=== PATIENT | female | born 1955 | race Caucasian/White ===

== ENCOUNTER 2019-03-13 16:41 | Inpatient (IN) | payer OTHER ==
[~2019-03-13] VITALS: Ht 162.6 cm; Wt 114.8 kg
[2019-03-13] VITALS (18 sets, daily range): BP systolic 115–159; BP diastolic 68–97
[2019-03-13 17:13] LABS: ABSOLUTE BASOPHILS 0.2 thou/uL (0.0-0.2); ABSOLUTE EOSINOPHILS 0.2 thou/uL (0.0-0.7); ABSOLUTE LYMPHOCYTES 7.7 thou/uL (0.8-5.3); ABSOLUTE MONOCYTES 1.2 thou/uL (0.0-1.2); ABSOLUTE NEUTROPHILS 7.7 thou/uL (1.6-8.1); BASOPHILS 1.2 %; HEMATOCRIT 40.4 % (37.0-47.0); HEMOGLOBIN 13.8 gm/dL (12.0-15.0); LYMPHOCYTES 45.3 %; MCH 30.7 pg (26.0-34.0); MCHC 34.2 g/dL (28.0-37.0); MCV 89.6 fL (80.0-100.0); MPV 8.7 fl. (7.2-11.1); NUCLEATED RBCS 0 /100WBC; PLATELET COUNT* 366 thou/uL (150-400); POLYS 45.5 %; RDW-CV 13.6 % (10.5-14.5); WBC 16.9 thou/uL (4.0-11.0)
[2019-03-13 17:24] LABS: APTT 19.5 Seconds (25.0-31.3); PROTIME 10.6 Seconds (9.20-11.50)
[2019-03-13 17:25] LABS: POTASSIUM 3.2 mmol/L (3.5-5.1)
--- NOTE | 2019-03-13 17:35 | NUR ---
AROUND 1705 PT WENT INTO VFIB. CHEST COMPRESSIONS STARTED AND SHOCKED AT 300 J. PT RETURNED TO NSR AND REGAINED CONSCIOUSNESS. AMIODARONE GIVEN PRESCRIBED.
[2019-03-13 17:42] LABS: ALBUMIN 3.6 g/dL (3.4-5.0); CK-MB MASS 0.6 ng/mL (<0.5-3.6); MAGNESIUM 2.1 mg/dL (1.8-2.4); TOTAL BILIRUBIN 0.6 mg/dL (<0.1-1.0); TOTAL PROTEIN 7.1 g/dL (6.4-8.2)
--- NOTE | 2019-03-13 21:00 | NUR ---
CORRECTION: THIS RN COMPLETED ADMISSION INTERVENTIONS
[2019-03-14] VITALS (22 sets, daily range): BP systolic 89–177; BP diastolic 46–102
[2019-03-14 05:31] LABS: ABSOLUTE BASOPHILS 0.1 thou/uL (0.0-0.2); ABSOLUTE LYMPHOCYTES 1.9 thou/uL (0.8-5.3); ABSOLUTE MONOCYTES 0.7 thou/uL (0.0-1.2); ABSOLUTE NEUTROPHILS 7.8 thou/uL (1.6-8.1); BASOPHILS 0.7 %; EOSINOPHILS 0.1 %; HEMATOCRIT 37.9 % (37.0-47.0); LYMPHOCYTES 18.1 %; MCH 30.6 pg (26.0-34.0); MCHC 34.2 g/dL (28.0-37.0); MCV 89.3 fL (80.0-100.0); MONOCYTES 6.3 %; MPV 8.8 fl. (7.2-11.1); NUCLEATED RBCS 0 /100WBC; POLYS 74.8 %; RBC 4.25 mil/uL (4.20-5.00); RDW-CV 13.4 % (10.5-14.5); WBC 10.5 thou/uL (4.0-11.0)
[2019-03-14 06:01] LABS: CALCIUM 8.7 mg/dL (8.5-10.1); CREATININE 0.8 mg/dL (0.6-1.3)
--- NOTE | 2019-03-14 06:11 | NUR ---
PT. PROGRESSING TOWARDS GOALS. HAS REMAINED SINUS RHYTHM W/ PACS AND PVC'S THROUGHOUT SHIFT. BP ELEVATED AT ADMISSION TO ICU, LISINOPRIL/METOPROLOL GIVEN, BP WITHIN NORMAL LIMITS AT THIS TIME. HEART RATE 50'S-70'S. NO COMPLAINTS OF CHEST PAIN, PT. DID STATE SHE FELT "FUNNY" AND "WEAK", BUT DENIED PAIN. PT. IS ABLE TO REPOSITION SELF. MULTIPLE FAMILY MEMBERS THROUGHOUT SHIFT. WILL CONTINUE TO MONITOR.
[2019-03-14 06:12] LABS: PLATELET COUNT* 278 thou/uL (150-400)
--- NOTE | 2019-03-14 11:22 | EKG ---
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: : 1955 Requested By: Lev Roblero Order Number: [id number] MD: Moise Rosenberg Measurements Intervals [place] Rate: 58 P: 9 IN: 138 QRS: -18 QRSD: 92 T: -7 QT: 452 QTc: 445 Interpretive Statements Sinus bradycardia Borderline left axis deviation Anterior infarct, acute (LAD) Lateral leads are also involved Baseline wander in lead(s) II No previous ECG available for comparison Electronically Signed On 03-14-2019 11:22:23 DESULFURIZER HAND by Moise Rosenberg [email or web address] <ELECTRONICALLY SIGNED> By: Moise Rosenberg MD, FACC 03/14/19 1122 1654 1654 Moise Rosenberg MD, [facility] /EPI
--- NOTE | 2019-03-14 16:54 | NUR ---
this editorial writer assumed care of pt at 0700 after receiving shift report. pt advanced toward goals today up out of bed to chair denies feeling dizzy or soa. sendy removed pt up to commode as needed no c/o pain but generalized soreness pain meds x1 during shift. is pt on teley floor brought down by daughter via wheelchair to see eachother family in and out of room throughout shift
[2019-03-15] VITALS (14 sets, daily range): BP systolic 90–127; BP diastolic 41–75
[2019-03-15 03:41] LABS: CHOLESTEROL 167 mg/dL (<200); HDL CHOLESTEROL 46 mg/dL (>40); LDL CHOLESTEROL 97 mg/dL (<100); TC:HDL 3.6 Ratio (Not establshd); TRIGLYCERIDE 124 mg/dL (<150); VLDL 25 mg/dL (<40)
[2019-03-15 03:43] LABS: SERUM ASSESSMENT CLEAR; TROPONIN-I LEVEL 14.09 ng/mL (<0.06)
[2019-03-15] MEDS ORDERED: ASA81BEC PO (08:52)
[2019-03-15] MEDS ORDERED: LIPITOR 20 MG T20 M1 PO (08:52)
[2019-03-15] MEDS ORDERED: LISINOPRIL2.5 MG PO (08:53)
[2019-03-15] MEDS ORDERED: TOPROL XL25 MG PO (08:54)
[2019-03-15] MEDS ORDERED: EFFIENT10 MG PO (08:55)
--- NOTE | 2019-03-15 10:28 | CARD ---
[address] [address] CARDIAC CATH REPORT Name: SUREKHA MILLAN Room: [address] IN .R.#: [id number] Admission: 03/13/19 Attend Phys: Sunny Wetzel MD Discharge: Date of : 59 Report #: [id number] THIS REPORT FOR: //name// APPROVED REPORT Study performed: 03/13/2019 16:52:48 Patient Details Patient Status: In-Patient Room #: ICU [address] Rafael Wood Procedures Performed Left heart catheterization selective coronary artery artery and percutaneous coronary intervention with deployment of drug-eluting stent at the site of 100% mid LAD occlusion Indication STEMI Risk Factors Obesity, Hypercholesterolemia Admission/Lab Medications/Medications given during procedure Angiomax bolus and infusion Procedure Narrative The patient was brought emergently to the Cardiac Catheterization Laboratory and was prepped and draped in a sterile manner. The right femoral was infiltrated with 2% Lidocaine subcutaneous anesthesia. A 6 Croatian sheath was inserted into the right femoral artery. Coronary angiography was performed using coronary diagnostic catheters. The right coronary system was accessed and visualized with a Diagnostic catheter. The left coronary system was accessed and visualized with a Diagnostic catheter. Left ventricular/Aortic Valve gradient assessed via catheter pullback. Pre-demployment femoral angiogram was performed . Closure device was deployed with a 6 Fr Angioseal. Coronary Angiography The patient's coronary anatomy is right dominant. Diagnostic Cath Left Main 0% narrowing [facility] [address] [place] [address] CARDIAC CATH REPORT Name: SUREKHA MILLAN Room: [address] ADM IN ..#: [id number] Admission: 03/13/19 Attend Phys: Sunny Wetzel MD Discharge: Date of : 59 Report #: [id number] LAD 100% mid LAD occlusion with prominent intraluminal thrombus Circumflex 80% stenosis of the first marginal branch of the nondominant circumflex Right Coronary Dominant vessel with 0% narrowing Hemodynamics The aortic pressure is 130/70 mmHg with a mean of 82 mmHg. The left ventricular end diastolic pressure is 25 mmHg. There was no gradient across the aortic valve upon pullback. PCI Technique Lesion Anticoagulation was achieved with Angiomax. Percutaneous coronary intervention was performed on the mid LAD. The lesion stenosis prior to intervention was 100% with MIRANDA flow. A 6 Croatian XB LAD 3.5 Guide Catheter was used to engage the left ostium. A 014 [facility] flex Interventional Guidewire was used to cross the lesion. BALLOON DILATION A Balloon catheter 2.5 x 12 trek was inserted and inflated up to 16atm for 15seconds. STENT DEPLOYMENT A drug-eluting stent 2.5 x 34 mm Hi was inserted and inflated up to 14atm for 15seconds. POST STENT DEPLOYMENT BALLOON DILATION A Balloon catheter 2.75 x 12 NC trek was inserted and inflated up to 12-18atm for 15seconds. Final angiography reveals 0 % stenosis with MIRANDA 3 flow. Conclusion #[address] segment elevation myocardial infarction #2 coronary artery disease characterized by the following: A 100% mid LAD occlusion with prominent intraluminal thrombus B 80% stenosis of the proximal portion of the prominent first marginal branch of the nondominant circumflex C normal left main and dominant right coronary artery #2 moderately severe elevation of left ventricular [place] [address] CARDIAC CATH REPORT Name: RICHARD MILLAN Room: [address] IN [facility].#: [id number] Admission: 03/13/19 Attend Phys: Sunny Wetzel MD Discharge: Date of : 59 Report #: [id number] pressure at rest #3 successful percutaneous coronary intervention with deployment of drug-eluting stent at the site of 100% mid LAD occlusion with 0% residual narrowing MIRANDA-3 flow to the distal vessel and no residual thrombus Recommendations Cardiac Rehabilitation Referral Cardiac Risk Reduction Program Aggressive Medical Therapy Medications Administered Aspirin (any) Prasugrel Diagnostic Cath Approved by: Rafael Wood MD Date/Time: 03/15/2019 10:27:43 <ELECTRONICALLY SIGNED> By: Rafael Wood MD, [facility] 03/15/19 1028 1028 1028Jonai Wood MD, FACC /INF
--- NOTE | 2019-03-15 11:12 | NUR ---
PT.RESTING IN BED. FAMILY AT BEDSIDE. HER DAUGHTER AND DAUGHTER'S AND HER SISTER FROM [place]. PT.S S.O. IS A PT.UPSTAIRS ON TELEMETRY. PT.SAID SHE IS NORMALLY INDEPENDENT. NO USE OF DME. SHE IS IN THE MIDDLE OF BUILDING A NEW HOUSE. SHE HAS BEEN UNDER STRESS LATELY. SHE SEES DR.JAN XIAO HER PCP BUT HER AND S.O.MAY CHANGE PCPS TO BE CLOSER TO THEIR NEW HOME. GAVE HER A LIST OF HOSPITAL OWNED PHYSICIAN GROUPS. CM WILL FOLLOW.
--- NOTE | 2019-03-15 14:51 | 2DMMODE ---
[place] [address] 2 D/M-MODE ECHOCARDIOGRAM Name: SUREKHA MILLAN Room: [address] ADM IN .R.#: [id number] Admission: 03/13/19 Attend Phys: Sunny Wetzel, Discharge: Date of : 59 Date of Service: 03/15/19 1451 Report #: [id number] THIS REPORT FOR: //name// APPROVED REPORT Study performed: 03/15/2019 09:36:47 EXAM: Comprehensive 2D, Doppler, and color-flow Echocardiogram Patient Location: Bedside BSA: 1.96 HR: 74 bpm BP: 99/55 mmHg Other Information Study Quality: Fair Indications Myocardial Infarction 2D Dimensions IVSd: 10.41 (7-11mm) LVOT Diam: 15.75 (18-24mm) LVDd: 45.21 mm PWd: 10.74 (7-11mm) Ascending Ao: 30.70 (22-36mm) LVDs: 29.41 (25-40mm) Aortic Root: 23.51 mm Volumes Left Atrial Volume (Systole) LA ESV Index: 18.60 mL/m2 Aortic Valve AoV Peak Israel.: 1.58 m/s AO Peak Gr.: 10.05 mmHg LVOT Max P.72 mmHg AO Mean Gr.: 5.83 mmHg LVOT Mean P.82 mmHg LVOT Max V: 1.20 m/s AO V2 VTI: 33.52 cm LVOT Mean V: 0.77 m/s MAINE (VTI): 1.40 cm2 LVOT V1 VTI: 24.07 cm Mitral Valve E/A Ratio: 1.40 MV Decel. Time: 186.47 ms MV E Max Israel.: 0.79 m/s MV PHT: 54.08 ms MVA (PHT): 4.07 cm2 [place] [address] 2 D/M-MODE ECHOCARDIOGRAM Name: SUREKHA MILLAN Room: [address] IN .R.#: [id number] Admission: 03/13/19 Attend Phys: Sunny Wetzel, Discharge: Date of : 59 Date of Service: 03/15/19 1451 Report #: [id number] TDI E/Lateral E': 6.58 E/Medial E': 5.64 Medial E' Israel.: 0.14 m/s Lateral E' Israel.: 0.12 m/s Pulmonary Valve PV Peak Israel.: 0.88 m/s PV Peak Gr.: 3.08 mmHg Tricuspid Valve RAP Estimate: 15.00 mmHg TR Peak Gr.: 34.19 mmHg RVSP: 49.19 mmHg PA Pressure: 49.19 mmHg Left Ventricle The left ventricle is normal size. There is apical hypokinesis noted. There is normal left ventricular wall thickness. Left ventricular systolic function is normal. The left ventricular ejection fraction is within the normal range. LVEF is 55%. The left ventricular diastolic function is normal. Right Ventricle The right ventricle is normal size. The right ventricular systolic function is normal. Atria The left atrium size is normal. The right atrium size is normal. Aortic Valve The aortic valve is normal in structure. No aortic regurgitation is present. There is no aortic valvular stenosis. Mitral Valve The mitral valve is normal in structure. Trace mitral regurgitation. No evidence of mitral valve stenosis. Tricuspid Valve The tricuspid valve is normal in structure. Trace tricuspid regurgitation. Pulmonic Valve The pulmonary valve is normal in structure. There is no pulmonic valvular regurgitation[place] [address] 2 D/M-MODE ECHOCARDIOGRAM Name: SUREKHA MILLAN Room: [address] IN [facility]#: [id number] Admission: 03/13/19 Attend Phys: Sunny Wetzel, Discharge: Date of : 59 Date of Service: 03/15/19 1451 Report #: [id number] The aortic root is normal in size. IVC is normal in size and collapses >50% with inspiration. Pericardium There is no pericardial effusion. <Conclusion> The left ventricle is normal size. There is normal left ventricular wall thickness. Left ventricular systolic function is normal. The left ventricular ejection fraction is within the normal range. LVEF is 55%. The right ventricle is normal size. The left atrium size is normal. The aortic valve is normal in structure. The mitral valve is normal in structure. The tricuspid valve is normal in structure. IVC is normal in size and collapses >50% with inspiration. There is no pericardial effusion. There is apical hypokinesis noted. <ELECTRONICALLY SIGNED> By: Rafael Wood MD, FACC 03/15/19 1451 145 145 Rafael Wood MD, FACC /INF
--- NOTE | 2019-03-15 17:03 | NUR ---
RECEIEVED REPORT FROM ELOY RN IN ICU AT 1530- PT TRANSFERED PER TECH PER W/C TO ROOM 213 ARRIVING AT 1650-PRIOR ASSESSMENT REVIEWED AND AGREE WITH- VS 97.6 18 106/45 74 95% ON RA- IV NOTED TO RIGHT HAND INTACT AND SL- LAST BM REPORTED X3 DAYS AGO, BUT REPORTS TO BE PASSING GAS- PT DENIES ANY C/O PAIN/DISCOMFORT AT THIS TIME- CALL LIGHT AND PERSONAL BELONGINGS WITH IN REACH- ALL NEEDS MET AT THIS TIME-WCTM
--- NOTE | 2019-03-15 17:05 | NUR ---
report given to angelo nicholson. all questions answered. family updated and present during transfer. all belongings, chart transfered with patient. patient taken by wheelchair to room 213 by nursing staff.
--- NOTE | 2019-03-15 17:38 | CON ---
[address] [address] CONSULTATION Name: SUREKHA MILLAN Room: [address] IN M.R.#: [id number] Admission: 03/13/19 Attend Phys: Sunny Wetzel MD Discharge: Date of : 59 Report #: [id number] THIS REPORT FOR: //name// CC: Sunny Wetzel [facility] physician/PCP CARDIOLOGY CONSULTATION HISTORY OF PRESENT ILLNESS: The patient is a 63-year-old female who presented to the ER emergently this late afternoon after severe chest pain, onset approximately 45 minutes prior to her presentation. She developed acute ventricular fibrillation in the ER and I arrived at the time when resuscitation was undertaken. After awakening, she noted the pain has been present for approximately 45 minutes with no preceding pain of this kind. She notes weight excess, but denies cigarette smoking or hypertension. She is unaware of her lipids. She denies diabetes. The patient denies family history of premature coronary events. PHYSICAL EXAMINATION: GENERAL: Demonstrates an acutely distressed, overweight middle-aged female. VITAL SIGNS: Blood pressure is 120/70, pulse rate is 74, respirations are 18 per minute. NECK: Jugular venous pressure is difficult to ascertain. CHEST: Clear anteriorly. CARDIAC: Reveals normal first and second heart sounds with a question of S4 gallop. ABDOMEN: Obese. EXTREMITIES: Without edema with intact femoral, pedal and radial pulses. IMAGING: EKG reveals acute anterior wall injury with evidence for ST-segment elevation myocardial infarction. Remainder of lab is pending. IMPRESSION: 1. Acute anterior wall ST-segment elevation myocardial infarction. 2. Weight excess. RECOMMENDATIONS: 1. Aspirin and heparin have been administered. 2. The patient was defibrillated from ventricular fibrillation, was in sinus bradycardia, which was returned to a normal rate after administration of atropine. [address] [address] CONSULTATION Name: SUREKHA MILLAN Room: [address] IN [facility]#: [id number] Admission: 03/13/19 Attend Phys: Sunny Wetzel MD Discharge: Date of : 59 Report #: [id number] 3. Would plan emergent catheterization with a mechanical reperfusion and the findings suggest need for same. The patient was transferred emergently to the labor economics professor. This is to be discussed with the family subsequently. Critical care time is 35 minutes from 1385-5226 on 03/13/2019. The patient is going to the ICU. <ELECTRONICALLY SIGNED> By: Rafael Wood MD, FACC 03/15/19 1738 56 1919Rafael Wood MD, FACC /nt
[2019-03-16 01:00] VITALS: BP 147/71
--- NOTE | 2019-03-16 02:56 | NUR ---
PT ALERT ORIENTED. UP AD SELVIN IN ROOM. DENIES CP OR DISCOMFORT. TELEMETRY SHOWS SR. ON RA. WCTM.
[2019-03-16 04:49] VITALS: BP 164/59
[2019-03-16 07:57] VITALS: BP 155/80
--- NOTE | 2019-03-16 09:28 | EKG ---
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 : 1955 Requested By: Moise Rosenberg Order Number: [id number] Reading MD: Adam Parker Measurements Intervals [place] Rate: 73 P: 39 ID: 145 QRS: -14 QRSD: 113 T: 41 QT: 382 QTc: 421 Interpretive Statements Sinus rhythm Probable anterior infarct, age indeterminate Compared to ECG 03/13/2019 16:54:49 Sinus bradycardia no longer present Myocardial infarct finding still present Electronically Signed On 03-16-2019 9:28:39 APPLIER by Adam Parker [email or web address] <ELECTRONICALLY SIGNED> By: Adam Parker MD, FACC 03/16/19 0928 0758 0758 Adam Parker MD, [facility] /EPI
[2019-03-16 10:48] LABS: ABSOLUTE BASOPHILS 0.1 thou/uL (0.0-0.2); ABSOLUTE EOSINOPHILS 0.1 thou/uL (0.0-0.7); ABSOLUTE MONOCYTES 0.5 thou/uL (0.0-1.2); EOSINOPHILS 0.9 %; HEMATOCRIT 39.2 % (37.0-47.0); HEMOGLOBIN 13.4 gm/dL (12.0-15.0); LYMPHOCYTES 25.9 %; MCH 30.8 pg (26.0-34.0); MCHC 34.2 g/dL (28.0-37.0); MCV 90.3 fL (80.0-100.0); MPV 8.6 fl. (7.2-11.1); NUCLEATED RBCS 0 /100WBC; PLATELET COUNT* 243 thou/uL (150-400); POLYS 65.2 %; RBC 4.35 mil/uL (4.20-5.00); RDW-CV 13.4 % (10.5-14.5); WBC 7.7 thou/uL (4.0-11.0)
[2019-03-16 11:00] LABS: ALBUMIN 3.5 g/dL (3.4-5.0); CALCIUM 9.1 mg/dL (8.5-10.1); CREATININE 0.8 mg/dL (0.6-1.3); POTASSIUM 3.9 mmol/L (3.5-5.1); TOTAL PROTEIN 7.2 g/dL (6.4-8.2)
[2019-03-16 11:30] VITALS: BP 132/64
--- NOTE | 2019-03-16 13:08 | NUR ---
Nutrition: Pt admitted with STEMI. Seen for high BMI. Wt: 253#. Heart Healthy diet ordered. Albumin 3.5. RX noted. CHF, CAD. Continue Heart Healthy diet. Low risk.
[2019-03-16 18:04] VITALS: BP 121/48
[2019-03-16 20:00] VITALS: BP 122/71
[2019-03-17] VITALS: BP 127/54
--- NOTE | 2019-03-17 05:01 | NUR ---
ASSUMED PT CARE AT APPROX 1930. PT IS AWAKE AND ORIENTED X4. VSS ON ROOM AIR. ORNAMENTAL MACHINE OPERATOR IN PLACE TRACING SR. PT DENIES CHEST PAIN/DISCOMFORT OF THIS TIME. ASSESSMENT DONE CHARTED. PT IS ABLE TO SLEEP MOST OF THE NIGHT. CALL LIGHT WITHIN REACH. FALL PRECAUTIONS IN PLACE. HOURLY ROUNDING DONE FOR PT SAFETY.
[2019-03-17 08:00] VITALS: BP 115/61
[2019-03-17] MEDS ORDERED: CARVEDILOL12.5 MG PO (10:44)
[2019-03-17 10:49] VITALS: BP 121/48
--- NOTE | 2019-03-17 11:05 | NUR ---
VSS, ASSUMED CARE IN THE AM, ASSESSMENT PERFORMED AND CHARTED, FALL PRECAUTIONS IN PLACE AND CALL LIGHT IN REACH, PT IS A&O4 AND IS UP AD SELVIN, ON RA, AND DENIES ANY PAIN, PT STATES RIGHT ARM FEELS HARD, PT GOAL IS TO DISCHARGE TO HOME TODAY, WILL FOLLOW WITH PLAN OF CARE, AT THIS TIME I HAVE COMPLETED D/C ORDERS, TOOK OUT IV AND TELE MONITOR, I PROVITED SCRIPS AND D/C EDU, PT TAKEN OUT VIA WHEEL CHAIR TO CAR.
[2019-03-17 12:04] VITALS: BP 127/58
--- NOTE | 2019-03-18 18:57 | CON ---
[address] [address] CONSULTATION Name: SUREKHA MILLAN Room: [address] IN M.R.#: [id number] Admission: 03/13/19 Attend Phys: Sunny Wetzel MD Discharge: 03/17/19 Date of : 59 Report #: [id number] THIS REPORT FOR: //name// CC: Sunny Wetzel [facility] physician/PCP DATE OF SERVICE: 03/16/2019 HISTORY OF PRESENT ILLNESS: This is a 63-year-old female patient who was seen by me for multiple symptoms. She initially said she is weak on the left side. Then, she indicated that she might be weak even on the right side. The family thinks her speech is softer. She said she feels fuzzy. She denies any prior history of anxiety or depression, symptoms started yesterday. REVIEW OF SYSTEMS: A 14-point review of system was carried out. She had a stent put in. I talked to the pan devulcanizer helper and they indicated they are okay with proceeding with an MRI in this patient. They are seeing this patient. A 14-point review of system was otherwise unremarkable. According to the patient, she says she does not take any medication. PAST MEDICAL HISTORY: Negative for stroke. FAMILY HISTORY: Unremarkable. SOCIAL HISTORY: She had a very supportive family who was there. She apparently does not smoke. PHYSICAL EXAMINATION: Indicate that the patient is alert, responsive, talks very softly. Cranial nerve examinations appear unremarkable. She appeared to have weakness in the left arm and to some extent both arm. I am not sure whether it is giveaway weakness or motor weakness. She said she had similar symptoms before [place]. Rest of the neurological examination appears mostly unchanged. Cardiac and respiratory examination is unremarkable. Blood pressure is 155/80, pulse is 78. Pulses are palpable. IMPRESSION: Pretty unusual symptoms this patient is having ____ dizziness, speech problem. Because of recent myocardial infarction, we will exclude the possibility of any stroke by doing an MRI, which was ordered. I discussed indication, potential complication, and alternative with family. They understood it. Cardiology cleared her for MRI. The patient was discussed with Dr. Wetzel. We will do that. About 50 minutes of time was [place] [address] CONSULTATION Name: SUREKHA MILLAN Room: [address]#: [id number] Admission: 03/13/19 Attend Phys: Sunny Wetzel MD Discharge: 03/17/19 Date of : 59 Report #: [id number] of this patient and majority of that time was spent counseling, coordinating her care, reviewing the imaging study and her chart. <ELECTRONICALLY SIGNED> By: Sundar Blank MD 03/18/19 1857 1054 [id number] Blank MD /lisa
== END 2019-03-17 12:00 | disposition home or self-care (01) | DRG 246 ==
LOC: M.ERS 16:41 → M.TBA-CV 19:11 → M.ICU 19:11 → M.2W 03-15 16:45
PROVIDERS: Family Medicine; Internal Medicine; Internal Medicine Cardiovascular Disease; ADMIT Internal Medicine
PROC: B2111ZZ Fluoroscopy of Multiple Coronary Arteries using Low Osmolar Contrast (ICD-10-PCS; principal; 2019-03-13)
PROC: 4A023N7 Measurement of Cardiac Sampling and Pressure, Left Heart, Percutaneous Approach (ICD-10-PCS; principal; 2019-03-13)
PROC: B41F1ZZ Fluoroscopy of Right Lower Extremity Arteries using Low Osmolar Contrast (ICD-10-PCS; principal; 2019-03-13)
PROC: 027034Z Dilation of Coronary Artery, One Artery with Drug-eluting Intraluminal Device, Percutaneous Approach (ICD-10-PCS; principal; 2019-03-13)
DX: I21.09 ST elevation (STEMI) myocardial infarction involving other coronary artery of anterior wall (principal); I50.31 Acute diastolic (congestive) heart failure; I49.01 Ventricular fibrillation; Z68.41 Body mass index [BMI] 40.0-44.9, adult; E66.01 Morbid (severe) obesity due to excess calories; I25.10 Atherosclerotic heart disease of native coronary artery without angina pectoris; Z95.5 Presence of coronary angioplasty implant and graft; Z79.82 Long term (current) use of aspirin; Z79.899 Other long term (current) drug therapy

== ENCOUNTER 2019-03-31 07:24 | Observation (INO) | payer OTHER ==
[2019-03-31] VITALS (17 sets, daily range): BP systolic 98–144; BP diastolic 45–74
[~2019-03-31] VITALS: Ht 165.1 cm; Wt 107.5 kg
--- NOTE | ~2019-03-31 | H ---
[address] [address] HISTORY AND PHYSICAL Name: SUREKHA MILLAN Room: [address] Aria Waterman#: [id number] Admission: 03/31/19 Attend Phys: Rafael Wood MD, Discharge: 04/01/19 Date of : 59 Report #: [id number] THIS REPORT FOR: //name// Please refer to the History and Physical performed in the physician's office. By: [id number] Records Staff SOCO /LILLY
[~2019-03-31 07:24] MED LIST: ASA81BEC PO; CARVEDILOL12.5 MG PO; EFFIENT10 MG PO; LIPITOR 20 MG T20 M1 PO; LISINOPRIL2.5 MG PO; TOPROL XL25 MG PO
[2019-03-31 08:12] LABS: HEMATOCRIT 37.1 % (37.0-47.0); HEMOGLOBIN 13.2 gm/dL (12.0-15.0); MCH 31.1 pg (26.0-34.0); MCHC 35.5 g/dL (28.0-37.0); MCV 87.6 fL (80.0-100.0); RBC 4.24 mil/uL (4.20-5.00); RDW-CV 13.4 % (10.5-14.5); WBC 5.5 thou/uL (4.0-11.0)
[2019-03-31 08:24] LABS: ANION GAP 8 mmol/L (7-16); BUN 12 mg/dL (7-18); CALCIUM 9.6 mg/dL (8.5-10.1); CHLORIDE 105 mmol/L (98-107); CO2 27 mmol/L (21-32); CREATININE 0.7 mg/dL (0.6-1.3); GLUCOSE 111 mg/dL (70-99); POTASSIUM 3.8 mmol/L (3.5-5.1); SODIUM 140 mmol/L (136-145)
[2019-03-31 08:28] LABS: APTT 25.3 Seconds (25.0-31.3); INR 1.1; PROTIME 10.9 Seconds (9.20-11.50)
[2019-03-31 08:30] LABS: ALBUMIN 3.6 g/dL (3.4-5.0); ALKALINE PHOSPHATASE 90 U/L (46-116); SGOT 23 U/L (15-37); SGPT 36 U/L (30-65); TOTAL BILIRUBIN 0.7 mg/dL (<0.1-1.0)
[2019-03-31 08:44] LABS: CHOLESTEROL 135 mg/dL (<200); HDL CHOLESTEROL 38 mg/dL (>40); LDL CHOLESTEROL 79 mg/dL (<100); TC:HDL 3.6 Ratio (Not establshd); TRIGLYCERIDE 90 mg/dL (<150); VLDL 18 mg/dL (<40)
[2019-03-31 08:45] LABS: SERUM ASSESSMENT Clear
[2019-03-31] MEDS ORDERED: COZAAR 25 MG TA25 M1 PO (14:15)
[2019-03-31] MEDS ORDERED: NITROGLYCERIN0.4 MG SUBLING (14:16)
--- NOTE | 2019-03-31 16:58 | EKG ---
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: : 1955 Requested By: Rafael Wood Order Number: [id number] Gudelia MD: Adam Parker Measurements Intervals [place] Rate: 51 P: 42 [place]: 148 QRS: -15 QRSD: 108 T: 44 QT: 428 QTc: 395 Interpretive Statements Sinus rhythm Borderline left axis deviation Possible anterior infarct, age indeterminate Compared to ECG 03/15/2019 07:58:38 No significant changes Electronically Signed On 03-31-2019 16:58:13 INTERNATIONAL ACCOUNTANT by Adam Parker [email or web address] <ELECTRONICALLY SIGNED> By: Adam Parker MD, [facility] 03/31/19 1658 0809 0809 Adam Parker MD, [facility] /EPI
--- NOTE | 2019-03-31 17:02 | EKG ---
[place] [address] ELECTROCARDIOGRAM REPORT Name: SUREKHA MILLAN Room: [address] M.R.#: [id number] Admission: 03/31/19 Attend Phys: Rafael Wood MD, Discharge: Date of : 59 Report #: [id number] THIS REPORT FOR: //name// [facility] Test Date: 2019-03-31 Test Time: 13:39:15 Pat Name: SUREKHA MILLAN Department: Room: 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 : 1955 Requested By: Rafael Wood Order Number: [id number] Gudelia MD: Adam Parker Measurements Intervals [place] Rate: 49 P: 61 [place]: 154 QRS: -2 QRSD: 109 T: 53 QT: 463 QTc: 418 Interpretive Statements Sinus bradycardia Anteroseptal infarct, age indeterminate Compared to ECG 03/15/2019 07:58:38 Sinus rhythm no longer present Myocardial infarct finding still present Electronically Signed On 03-31-2019 17:02:07 BIN PILER by Adam Parker [email or web address] <ELECTRONICALLY SIGNED> By: Adam Parker MD, FACC 03/31/19 1702 1339 1339 Adam Parker MD, FACC /EPI
[2019-04-01] VITALS: BP 117/42
[2019-04-01 04:00] VITALS: BP 127/50
[2019-04-01 05:04] LABS: HEMATOCRIT 34.9 % (37.0-47.0); HEMOGLOBIN 11.8 gm/dL (12.0-15.0); MCH 30.2 pg (26.0-34.0); MCV 88.9 fL (80.0-100.0); MPV 9.5 fl. (7.2-11.1); RBC 3.92 mil/uL (4.20-5.00); RDW-CV 13.3 % (10.5-14.5); WBC 4.7 thou/uL (4.0-11.0)
[2019-04-01 05:25] LABS: CALCIUM 8.9 mg/dL (8.5-10.1); CREATININE 0.7 mg/dL (0.6-1.3); POTASSIUM 3.5 mmol/L (3.5-5.1); TOTAL BILIRUBIN 0.6 mg/dL (<0.1-1.0); TOTAL PROTEIN 5.9 g/dL (6.4-8.2)
[2019-04-01 05:30] LABS: TROPONIN-I LEVEL 1.08 ng/mL (<0.06)
[2019-04-01 08:00] VITALS: BP 124/54
[2019-04-01 08:24] VITALS: BP 124/54
--- NOTE | 2019-04-01 12:47 | CARD ---
[address] [address] CARDIAC CATH REPORT Name: SUREKHA MILLAN Room: [address] Aria Waterman#: [id number] Admission: 03/31/19 Attend Phys: Rafael Wood MD, Discharge: 04/01/19 Date of : 59 Report #: [id number] THIS REPORT FOR: //name// APPROVED REPORT Study performed: 03/31/2019 11:03:48 Patient Details Patient Status: Out-Patient Room #: The patient is a 63 year-old female Event Personnel Rafael Wood Insurance Sales Agent, Cara Orellana RN Fast Food Crew Member, Tigre Joiner RTR Scrub, Court Bernard RTR Monitor Procedures Performed Art Access - R radial artery Coronary Angiography ,SUMIT OM Indication Chest pain, Coronary artery disease status post recent [place] Risk Factors Hypercholesterolemia, Hypertension Admission/Lab Medications/Medications given during procedure Heparin IV 5000 units, Angiomax IV 16.5 mg per kg, Angiomax Drip IV 37.8 ml per hr Procedure Narrative The patient was brought electively to the Cardiac Catheterization Laboratory and was prepped and draped in a sterile manner. The right wrist was infiltrated with 2% Lidocaine subcutaneous anesthesia. A 6F Slender Glidesheath sheath was inserted into the right radial artery. Coronary angiography was performed using coronary diagnostic catheters. The left coronary system was accessed and visualized with a JL 3.5 5fr catheter. The patient tolerated the procedure well and there were no complications associated with the procedure. A 24cm VASC TR closure device was applied to the rt wrist, with 18 ml of air in balloon, post procedure. Intraoperative Conscious Sedation Sedation start time: 11:40 Case end Time: 12:47 Fentanyl [address] [place] [address] CARDIAC CATH REPORT Name: SUREKHA MILLAN Christine Room: [address]#: [id number] Admission: 03/31/19 Attend Phys: Rafael Wood MD, Discharge: 04/01/19 Date of : 59 Report #: [id number] Fluoro Time: 9.3 minutes Dose: DAP 94950 cGycm2 1269 mGy Contrast Type and Amount: Visipaque 160 ml Diagnostic Cath Left Main 0% narrowing LAD Widely patent proximalmid LAD stent with 50% mid to distal LAD narrowing Circumflex Prominent though nondominant vessel with 80% stenosis of the proximal portion of the first marginal branch Right Coronary Dominant vessel with 30% mid vessel narrowing by recent cineangiogram Hemodynamics The aortic pressure is 108/58 mmHg with a mean of 69 mmHg. PCI Technique Lesion Anticoagulation was achieved with Heparin and Angiomax. Patient was preloaded with Heparin IV 5000 units. Percutaneous coronary intervention was performed on the first obtuse marginal branch segment. The lesion stenosis prior to intervention was 80% with MIRANDA 3 flow. A 6FR XBLAD 3.5 SH Guide Catheter was used to engage the ostium. A BMW 190cm Interventional Guidewire was used to cross the lesion. BALLOON DILATION A Balloon catheter Trek RX 2.5 X 15 was inserted and inflated up to 14.00atm for 11seconds. STENT DEPLOYMENT A drug-eluting stent Xience Ivet 3.0X18mm was inserted and inflated up to 12.00atm for 13seconds. Additional Inflation: 15.00atm for 7seconds. POST STENT DEPLOYMENT BALLOON DILATION A Balloon catheter NC Trek RX 3.0 X 8 was inserted and inflated up to 16.00atm for 9seconds. Additional Inflation: 18.00atm for 7seconds. Final angiography reveals 0 % stenosis with MIRANDA 3 flow. Conclusion #1 significant coronary artery disease characterized by the following: [place] [address] CARDIAC CATH REPORT Name: VINCEAVEKayleenSUREKHA King Room: [address] [place]#: [id number] Admission: 03/31/19 Attend Phys: Rafael Wood MD, Discharge: 04/01/19 Date of : 59 Report #: [id number] A widely patent proximalmid LAD stent with 50% mid to distal LAD narrowing B prominent though nondominant circumflex with 80% stenosis of the proximal portion of the first marginal branch C 30% mid right coronary narrowing as per recent cineangiogram #2 normal systemic pressure throughout the study #3 successful percutaneous coronary intervention with deployment of a drug-eluting stent at the site of 80% first marginal stenosis with 0% residual narrowing and MIRANDA-3 flow the distal vessel Recommendations Cardiac Risk Reduction Program Aggressive Medical Therapy Diagnostic Cath Approved by: Rafael Wood MD Date/Time: 04/01/2019 12:45:50 <ELECTRONICALLY SIGNED> By: Rafael Wood MD, [facility] 04/01/19 1247 1247 [id number] Wood MD, [facility] /INF
--- NOTE | 2019-04-01 15:32 | D ---
[address] [address] DISCHARGE SUMMARY Name: SUREKHA MILLAN Room: [address] Aria Waterman#: [id number] Admission: 03/31/19 Attend Phys: Rafael Wood MD, Discharge: 04/01/19 Date of : 59 Report #: [id number] THIS REPORT FOR: //name// CC: Tigre Wood DATE OF SERVICE: 04/01/2019 FINAL DISCHARGE DIAGNOSES: 1. Coronary artery disease. 2. Status post recent anterior infarction. 3. Status post percutaneous coronary intervention to the circumflex on 03/31/2019 with a prior acute intervention to the left anterior descending. 4. Hyperlipidemia. 5. Hypertension. 6. Weight excess. PROCEDURES: 03/31/2019 -- selective coronary arteriography with percutaneous coronary intervention, deploying one drug-eluting stent in the obtuse marginal branch of the circumflex. The patient is a pleasant 63-year-old female with recent anterior infarction interrupted by stenting of the LAD. She has underlying hypertension, hyperlipidemia and weight excess. She was also noted to have an 80% first marginal stenosis at the time of the acute LAD intervention. This was not approached in the acute setting. She was readmitted on 03/31/2019 with catheterization revealing widely patent LAD stent, mild right coronary artery disease and 80% first marginal stenosis. I deployed one drug-eluting stent in the first marginal branch of the circumflex, 3.0 x 18 with a 0% residual narrowing following stent deployment, MIRANDA 3 flow of the distal vessel. Troponin drake minimally to 1.08. She did well post-procedurally and there was good hemostasis at the right radial site of catheterization. The patient was discharged to home on 04/01/2019 on aspirin 81 mg daily, atorvastatin 20 mg daily, carvedilol 3.125 mg b.i.d., losartan 25 mg at bedtime, prasugrel 10 mg daily and p.r.n. sublingual nitroglycerin. We will plan to see her in followup in 3-4 [place] [address] DISCHARGE SUMMARY Name: SUREKHA MILLAN Room: [address]R.#: [id number] Admission: 03/31/19 Attend Phys: Rafael Wood MD, Discharge: 04/01/19 Date of : 59 Report #: [id number] Thus, the patient is discharged to home in stable condition on the aforementioned medications with followup as iterated above. <ELECTRONICALLY SIGNED> By: Rafael Wood MD, FACC 04/01/19 1532 0946 [id number] Wood MD, FAC /nt
--- NOTE | 2019-04-01 16:02 | EKG ---
[place] [address] ELECTROCARDIOGRAM REPORT Name: SUREKHA MILLAN Christine Room: [address]R.#: [id number] Admission: 03/31/19 Attend Phys: Rafael Wood MD, Discharge: 04/01/19 Date of : 59 Report #: [id number] THIS REPORT FOR: //name// [facility] Test Date: 2019-04-01 Test Time: 09:45:11 Pat Name: SUREKHA MILLAN Department: Room: [facility] Gender: F Welt Wheeler: : 1955 Requested By: Rafael Wood Order Number: [id number] Gudelia MD: Rafael Wood Measurements Intervals [place] Rate: 62 P: 49 CO: 152 QRS: -13 QRSD: 107 T: 86 QT: 406 QTc: 413 Interpretive Statements Sinus rhythm Anteroseptal infarct, age indeterminate Compared to ECG 03/31/2019 13:39:15 Sinus bradycardia no longer present Myocardial infarct finding still present Electronically Signed On 04-01-2019 16:02:15 CERTIFIED PEDORTHOTIST by Rafael Wood [email or web address] <ELECTRONICALLY SIGNED> By: Rafael Wood MD, [facility] 04/01/19 1602 0945 0945 Rafael Wood MD, [facility] /EPI
== END 2019-04-01 11:31 | disposition home or self-care (01) ==
LOC: M.CL 07:24 → M.2W 13:28 → M.TBA-CV 13:28 → M.2W 13:32
PROVIDERS: ADMIT Internal Medicine
DX: I25.10 Atherosclerotic heart disease of native coronary artery without angina pectoris (principal); E78.5 Hyperlipidemia, unspecified; I10 Essential (primary) hypertension; R63.5 Abnormal weight gain

== ENCOUNTER → 2019-11-04 | Outpatient (CLI) | payer OTHER ==
[~2019-11-04] MED LIST changes: +COZAAR 25 MG TA25 M1 PO; +NITROGLYCERIN0.4 MG SUBLING
[2019-11-04 09:20] LABS: ALBUMIN 3.6 g/dL (3.4-5.0); ALKALINE PHOSPHATASE 86 U/L (46-116); CHOLESTEROL 154 mg/dL (<200); DIRECT BILIRUBIN 0.2 mg/dL (<0.1-0.3); HDL CHOLESTEROL 56 mg/dL (>40); LDL CHOLESTEROL 85 mg/dL (<100); SGOT 19 U/L (15-37); SGPT 28 U/L (30-65); TC:HDL 2.8 Ratio (Not establshd); TOTAL BILIRUBIN 0.6 mg/dL (<0.1-1.0); TRIGLYCERIDE 65 mg/dL (<150); VLDL 13 mg/dL (<40)
[2019-11-04 09:21] LABS: SERUM ASSESSMENT Clear
== END ==
LOC: M.LAB 08:29
PROVIDERS: ATTEND Nurse Practitioner
DX: E78.49 Other hyperlipidemia (principal)

== ENCOUNTER 2020-02-28 11:10 | Emergency (ER) | payer OTHER ==
[~2020-02-28] VITALS: Ht 162.6 cm; Wt 111.1 kg
[2020-02-28 11:54] LABS: ABSOLUTE BASOPHILS 0.1 thou/uL (0.0-0.2); ABSOLUTE EOSINOPHILS 0.1 thou/uL (0.0-0.7); ABSOLUTE LYMPHOCYTES 1.9 thou/uL (0.8-5.3); ABSOLUTE MONOCYTES 0.4 thou/uL (0.0-1.2); BASOPHILS 1.4 %; HEMATOCRIT 39.3 % (37.0-47.0); HEMOGLOBIN 13.5 gm/dL (12.0-15.0); LYMPHOCYTES 33.9 %; MCHC 34.3 g/dL (28.0-37.0); MCV 90.3 fL (80.0-100.0); MONOCYTES 7.7 %; NUCLEATED RBCS 0 /100WBC; PLATELET COUNT* 247 thou/uL (150-400); RBC 4.35 mil/uL (4.20-5.00); RDW-CV 13.9 % (10.5-14.5); WBC 5.5 thou/uL (4.0-11.0)
[2020-02-28 12:04] LABS: CREATININE 0.7 mg/dL (0.6-1.3); POTASSIUM 3.8 mmol/L (3.5-5.1)
[2020-02-28 12:06] LABS: APTT 24.7 Seconds (25.0-31.3); PROTIME 10.8 Seconds (9.20-11.50)
[2020-02-28 12:15] LABS: ALBUMIN 3.4 g/dL (3.4-5.0); TOTAL BILIRUBIN 0.8 mg/dL (<0.1-1.0)
[2020-02-28] MEDS ORDERED: NITROSTAT0.4 M1 SUBLING (13:40)
--- NOTE | 2020-02-28 15:34 | EKG ---
[place] [address] ELECTROCARDIOGRAM REPORT Name: VINCEAVESUREKHA Beyer Room: [facility]#: [id number] Admission: 02/28/20 Attend Phys: Discharge: Date of : 59 Date of Service: 02/28/20 1117 Report #: [id number] THIS REPORT FOR: //name// [facility] ED Test Date: 2020-02-28 Test Time: 11:17:54 Pat Name: SUREKHA MILLAN Department: Room: Gender: F Seismograph Shooter: TOM : 1955 Requested By: Marium Carr Order Number: [id number] MD: Moise Rosenberg Measurements Intervals [place] Rate: 57 P: -3 RI: 125 QRS: -9 QRSD: 103 T: 24 QT: 414 QTc: 403 Interpretive Statements Sinus rhythm Low voltage, precordial leads Abnormal R-wave progression, early transition Compared to ECG 04/01/2019 09:45:11 Myocardial infarct finding no longer present Electronically Signed On 02-28-2020 15:33:57 ADMINISTRATION PROFESSIONAL by Moise Rosenberg [email or web address] <ELECTRONICALLY SIGNED> By: Moise Rosenberg MD, FACC 02/28/20 1533 1117 1117 Moise Rosenberg MD, [facility] /EPI
[2020-02-28 15:36] VITALS: BP 138/70
== END 2020-02-28 15:38 | disposition home or self-care (01) ==
LOC: M.ERS 11:10
PROVIDERS: Personal Emergency Response Attendant
DX: I20.9 Angina pectoris, unspecified (principal); Z20.828 Contact with and (suspected) exposure to other viral communicable diseases; I10 Essential (primary) hypertension; E78.5 Hyperlipidemia, unspecified; Z95.5 Presence of coronary angioplasty implant and graft